=== PATIENT | male | born 1985 | race Caucasian/White ===

== ENCOUNTER 2017-05-19 18:23 | Emergency (ER) | payer MEDICARE, MEDICAID ==
[~2017-05-19 18:23] MED LIST: ACET-2043 PO; AMPH30TA9 PO; ARIP20TA11 PO; BACOUD TP; BENZ1 PO; BENZ200C38 PO; CLAR-13 PO; CLON-303 PO; DIV500ER PO; DOCU-416 PO; ESCI20TA8 PO; FEXO180T87 PO; GUAI600T34 PO; HYDR-317 PO; HYDR25CA13 PO; MULT1TAB77 PO; NAPR220C11 PO; OLAN15TA19; OMEP40CA48 PO; PHEN200T32 PO; PROP10TA58; PROP10TA58 PO; RANI-318; RISP1TAB79 PO; SERT-177 PO
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
[2017-05-19 18:28] VITALS: BP 133/81
[2017-05-19] MEDS ORDERED: ESCI10TA8 PO (18:47)
[2017-05-19] MEDS ORDERED: OLAN10VI2 PO (18:47)
[2017-05-19] MEDS ORDERED: HYDR25PO PO (18:47)
[2017-05-19] MEDS ORDERED: LAMO150T36 PO (18:47)
[2017-05-19] MEDS ORDERED: LIT300L PO (18:47)
[2017-05-19] MEDS ORDERED: LURA120T PO (18:47)
[2017-05-19 18:52] LABS: PLATELET COUNT, AUTOMATED 186 K/uL (150-450)
== END 2017-05-19 19:44 | disposition other institution (70) ==
LOC: ER 18:30
DX: F63.9 Impulse disorder, unspecified (principal); R62.50 Unspecified lack of expected normal physiological development in childhood; F17.200 Nicotine dependence, unspecified, uncomplicated
CPT/HCPCS: 36415; 80164; 80305; 81001; 83735; 84443; 85025; 99285; G0480; 80178; 80320; 80329; 82040; 82247; 82310; 82374; 82435; 82565; 82947; 84075; 84132; 84155; 84295; 84450; 84460; 84520

== ENCOUNTER 2017-05-19 19:27 | Inpatient (IN) | payer MEDICARE, MEDICAID ==
[~2017-05-19] VITALS: Ht 172.7 cm; Wt 72.6 kg
[~2017-05-19 19:27] MED LIST changes: +ESCI10TA8 PO; +HYDR25PO PO; +LAMO150T36 PO; +LIT300L PO; +LURA120T PO; +OLAN10VI2 PO
[2017-05-19] MEDS ORDERED: OLANZapine 5 MG TAB PO PRN (20:10)
[2017-05-19] MEDS ORDERED: LORazepam 1 MG TAB PO PRN (20:15)
[2017-05-19] MEDS ORDERED: diphenhydrAMINE 50 MG/ML VIAL IM PRN (20:15)
[2017-05-19] MEDS ORDERED: LORazepam 2 MG/ML VIAL IM PRN (20:15)
[2017-05-19] MEDS ORDERED: diphenhydrAMINE 25 MG CAP PO PRN (20:15)
[2017-05-19] MEDS ORDERED: WATER STERILE 10 ML VIAL IM ONLY PRN (20:15)
[2017-05-19] MEDS ORDERED: OLANZapine 10 MG VIAL IM ONLY PRN (20:15)
[2017-05-19 22:00] VITALS: BP 100/60
[2017-05-19] MEDS ORDERED: risperiDONE 1 MG TAB PO SCH (22:45)
[2017-05-19] MEDS ORDERED: PANTOPRAZOLE SOD 40 MG TABEC PO SCH (22:46)
[2017-05-19] MEDS ORDERED: ESCITALOPRAM OXALATE 10 MG TAB PO SCH (22:49)
[2017-05-19] MEDS ORDERED: LITHIUM CARBONATE 450 MG TABCR PO SCH (22:50)
[2017-05-19] MEDS ORDERED: DIVALPROEX SOD DR 500 MG TAB PO SCH (22:51)
[2017-05-20] MEDS: BENZTROPINE MESYLATE 0.5MG TAB PO SCH ×2 (01:17→08:37)
--- NOTE | 2017-05-20 06:35 | EKG ---
FACILITY: [facility] PATIENT NAME: SHERMAN OZUNA : [id number] MR: [id number] V: [id number] EXAM DATE: ORDERING PHYSICIAN: LAKSHMI REYES TECHNOLOGIST: Rashaad Sanford Reason : Blood Pressure : / mmHG Vent. Rate : 096 BPM Atrial Rate : 096 BPM P-R Int : 152 ms QRS Dur : 084 ms QT Int : 372 ms P-R-T Axes : 040 063 038 degrees QTc Int : 469 ms Normal sinus rhythm Normal ECG No previous ECGs available Confirmed by ALEXIS MORALES ([id number]) on 05/20/2017 1:13:10 PM Referred By: Confirmed By:ALEXIS MORALES
[2017-05-20] MEDS ORDERED: NICOTINE POLACRILEX 2 MG GUM PO PRN (07:40)
[2017-05-20] MEDS: METHYLPHENIDATE 18 MG TABER PO SCH (09:10)
[2017-05-20] MEDS: OLANZapine 5 MG TAB PO SCH ×2 (09:10→20:39)
[2017-05-20] MEDS ORDERED: hydrOXYzine PAMOATE 25 MG CAP PO PRN (10:15)
[2017-05-20] MEDS ORDERED: SALINE 0.65% NAS SPR 44 ML BTL PRN (10:15)
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
[2017-05-20] MEDS: MENTHOL/METHYL SALI CREAM 57 GM 57 GM TUBE TP PRN (19:19)
[2017-05-20 20:24] VITALS: BP 122/74
[2017-05-20] MEDS: FEXOFENADINE HCL 60 MG TAB PO SCH (20:37)
[2017-05-20] MEDS: LITHIUM CARBONATE 300 MG TABCR PO SCH (20:38)
[2017-05-20] MEDS: PANTOPRAZOLE SOD 40 MG TABEC PO SCH (20:38)
[2017-05-20] MEDS ORDERED: LURASIDONE 40 MG TAB PO SCH (21:00)
[2017-05-21 04:00] VITALS: BP 135/87
[2017-05-21] MEDS: METHYLPHENIDATE 18 MG TABER PO SCH (07:49)
[2017-05-21] MEDS: lamoTRIgine 100 MG TAB PO SCH (07:50)
[2017-05-21] MEDS: LITHIUM CARBONATE 300 MG TABCR PO SCH ×2 (07:50→20:58)
[2017-05-21] MEDS: OLANZapine 5 MG TAB PO SCH ×2 (07:50→20:57)
[2017-05-21] MEDS: BENZTROPINE MESYLATE 0.5MG TAB PO SCH (07:50)
[2017-05-21] MEDS: MENTHOL/METHYL SALI CREAM 57 GM 57 GM TUBE TP PRN (08:04)
--- NOTE | 2017-05-21 08:37 | BHS Progress Note ---
S - Subjective Progress Notes Subjective "I'm good." Client is pleasant, cooperative. Denies feelings of anger, self harm or thoughts of harming others. Reports sleeping well. Suicidal Ideation: None Homicidal Ideation: None S - Objective Physical Exam Vital Signs Vital Signs 05/21/17 04:00 Temp 98.7 Pulse 89 B/P (MAP) 135/87 (103) Pulse Ox 93 O2 Delivery Room Air Muscle Strength and Tone: WNL Gait and Station: Steady [facility] Medications Reviewed: Side Effects, Benefits of Medication, Risks Allergies Reviewed: Yes Mental Status Exam General Appearance: Casual, Good Eye Contact, Cooperative, Polite, Good Interaction, No Psychomotor Agitation, No Psychomotor Retardation Speech: Spontaneous, Normal Rate, Normal Rhythm, Normal Volume, Normal Tone, Other (slight impediment) Mood: Euthymic Affect: Calm, Neutral Thought Process: Organized, Logical, Goal Directed Thought Content: No Suicidal Ideation, No Homicidal Ideation, No Auditory Halllucinations, No Visual Hallucinations, No Thought Broadcasting, No Ideas of Reference, No Obsessions, No Compulsions Sensorium: Clear Cognition: Alert & Oriented-Person, Alert & Oriented-Place Memory: Immediate, Recent, Remote Intelligence: Below Average Insight Judgment: Poor [facility] Assessment and Plan [id number] Encounter Date: May 21, 2017 [id number] Encounter Time: 08:00 [facility] Plan: Admit to Unit, Necessary Precautions, Individual/Group Therapy, Admin /Titrate Meds, Educate Patient Tobacco Medications: Not Appropriate Condition Multpiple Antipsychotics Used: Yes Reason For >1 Antipsychotic: cross tapering currently onto zyprexa Problems: (1) Schizoaffective disorder, bipolar type Status: Chronic LAKSHMI REYES NP May 21, 2017 08:37
[2017-05-21] MEDS ORDERED: MOISTURIZING CREAM 120 GM JAR TP PRN (20:00)
[2017-05-21] MEDS ORDERED: LURASIDONE 40 MG TAB PO SCH (21:00)
[2017-05-22 05:51] VITALS: BP 121/58
[2017-05-22 06:00] LABS: PLATELET COUNT, AUTOMATED 175 K/uL (150-450)
[2017-05-22] MEDS: BENZTROPINE MESYLATE 0.5MG TAB PO SCH (08:08)
[2017-05-22] MEDS: METHYLPHENIDATE 18 MG TABER PO SCH (08:08)
[2017-05-22] MEDS: OLANZapine 5 MG TAB PO SCH ×2 (08:08→20:26)
[2017-05-22] MEDS: LITHIUM CARBONATE 300 MG TABCR PO SCH ×2 (08:08→20:26)
[2017-05-22] MEDS: lamoTRIgine 100 MG TAB PO SCH ×2 (09:00→09:49)
[2017-05-22] MEDS ORDERED: diphenhydrAMINE 25 MG CAP PO ONE (09:25)
--- NOTE | 2017-05-22 09:44 | B[facility] Progress Note ---
[facility] - Subjective Progress Notes Subjective "I'm good. I'm allergic to the soap." Denies SI, HI, anger. Pleasant and cooperative with all staff and peers. Reports sleep is good at night. Suicidal Ideation: None Homicidal Ideation: None [facility] - Objective Physical Exam Vital Signs Vital Signs 05/22/17 05:51 Temp 99.0 Pulse 84 B/P (MAP) 121/58 (79) Pulse Ox 94 O2 Delivery Room Air Muscle Strength and Tone: WNL Gait and Station: Steady [facility] Medications Reviewed: Side Effects, Benefits of Medication, Risks (Client complains of itcy areas of skin on szymanski, upper back. No redness, rash appreciated. No mouth sores, eye mucosa appears clear, no fever, CBC, chem comp , lithium level WNL) Allergies Reviewed: Yes Mental Status Exam General Appearance: Casual, Good Eye Contact, Cooperative, Polite, Good Interaction, No Psychomotor Agitation, No Psychomotor Retardation Speech: Spontaneous, Normal Rate, Normal Rhythm, Normal Volume, Normal Tone, Other (slight impediment) Mood: Euthymic Affect: Calm, Neutral Thought Process: Organized, Logical, Goal Directed Thought Content: No Suicidal Ideation, No Homicidal Ideation, No Auditory Halllucinations, No Visual Hallucinations, No Thought Broadcasting, No Ideas of Reference, No Obsessions, No Compulsions Sensorium: Clear Cognition: Alert & Oriented-Person, Alert & Oriented-Place Memory: Immediate, Recent, Remote Intelligence: Below Average Insight Judgment: Poor Result Diagram: 05/22/17 0535 05/22/17 0535 [facility] Assessment and Plan [id number] Encounter Date: May 22, 2017 [id number] Encounter Time: 09:00 [facility] Plan: Admit to Unit, Necessary Precautions, Individual/Group Therapy, Admin /Titrate Meds, Educate Patient Tobacco Medications: Not Appropriate Condition Multpiple Antipsychotics Used: Yes Reason For >1 Antipsychotic: cross tapering currently onto zyprexa Problems: (1) Schizoaffective disorder, bipolar type Status: Chronic (2) Moderate mental retardation (I.Q. 35-49) LAKSHMI REYES NP May 22, 2017 09:44
[2017-05-22 16:45] VITALS: BP 102/58
[2017-05-22] MEDS: MENTHOL/METHYL SALI CREAM 57 GM 57 GM TUBE TP PRN (17:14)
[2017-05-22] MEDS: FEXOFENADINE HCL 60 MG TAB PO SCH (20:29)
[2017-05-22] MEDS: PANTOPRAZOLE SOD 40 MG TABEC PO SCH (20:30)
[2017-05-23 04:07] VITALS: BP 124/72
[2017-05-23] MEDS: BENZTROPINE MESYLATE 0.5MG TAB PO SCH (08:33)
[2017-05-23] MEDS: LITHIUM CARBONATE 300 MG TABCR PO SCH (08:33)
[2017-05-23] MEDS: METHYLPHENIDATE 18 MG TABER PO SCH (08:33)
[2017-05-23] MEDS: lamoTRIgine 100 MG TAB PO SCH (08:33)
[2017-05-23] MEDS: OLANZapine 5 MG TAB PO SCH (08:33)
[2017-05-23] MEDS: MENTHOL/METHYL SALI CREAM 57 GM 57 GM TUBE TP PRN (08:38)
[2017-05-23] MEDS ORDERED: BEN5 PO (13:28)
[2017-05-23] MEDS ORDERED: METH18ERPT PO (13:30)
[2017-05-23] MEDS ORDERED: LAMO100T52 PO (13:32)
[2017-05-23] MEDS ORDERED: MENT113G6 TP (13:35)
[2017-05-23] MEDS ORDERED: MINE120C6 TP (13:37)
[2017-05-23] MEDS ORDERED: SODI75SP NS (13:39)
[2017-05-23] MEDS ORDERED: OLAN5TAB27 PO ×2 (13:43→13:44)
[2017-05-23] MEDS ORDERED: OLAN10TA21 PO (13:43)
[2017-05-23] MEDS ORDERED: HYDR25CA13 PO (13:50)
[2017-05-23] MEDS ORDERED: METHYLPHENIDATE 18 MG TABER PO SCH (14:15)
--- NOTE | 2017-05-24 21:02 | DISCHARGE SUMMARY ---
DATE OF ADMISSION: May 19, 2017 DATE OF DISCHARGE: May 23, 2017 The patient was seen regarding this discharge at approximately 1000 hours on the morning of 23 May 2017. FINAL DIAGNOSES 1. Moderate intellectual disability, likely attention deficit disorder and likely schizoaffective disorder type symptomatology associated with moderate intellectual disability. 2. The patient is suffering from impulse control disorder. 3. The patient is having supportive care through [facility] currently and supportive relationship with sister who is the patient's guardian. REASON FOR ADMISSION This is a pleasant 32-year-old male who was initially admitted from the [facility] where the patient was demonstrating increasing agitated, aggressive behaviors and reckless behaviors such as jumping out of cars. The patient was also verbalizing aggression toward others and the patient punching pena at times as well. The patient was notably admitted without incident through the Emergency Room. Close observation for impulsive or aggressive behaviors was in place. The patient was demonstrating no aggressive behaviors toward staff or other patients while on the Behavioral Health Unit, and the patient verbalizing no aggression. No parasuicidal behaviors were seen. The patient's medications were adjusted with assistance of current outpatient provider, Dr. Harris. The patient continued to do well on the unit, interacting well, and consistent with what would be expected with moderate intellectual disability. Patient meetings were held with [facility] staff. The patient was discharged back to the [facility]; however, the patient's guardian and sister is aware that the [facility] will expect this patient to exit their program within the next month. The patient was having no medical complaints on the unit outside of some mild attention- seeking behaviors. PHYSICAL EXAMINATION Please see emergency room note. GENERAL: This is a 32-year-old male suffering from moderate intellectual disability. VITAL SIGNS: At time of admission to the unit showed temperature 99.1, pulse 102, respiratory rate 18, blood pressure 133/81, and pulse oximetry 95% on room air. At time of discharge from [facility], vital signs showed temperature 98.3, pulse 100, respiratory rate 16, blood pressure 124/72, and pulse oximetry 97% on room air. LABORATORY DATA CBC upon admission was unremarkable, CMP unremarkable as well. Toxicology screen notable for lithium level of 0.6 upon admission. TSH was 1.84. Urinalysis unremarkable. Undetectable serum alcohol level. Depakote level was drawn as well and was undetectable upon admission. MENTAL STATUS EXAMINATION GENERAL APPEARANCE, BEHAVIOR, AND ATTITUDE: This is a 32-year-old male, very pleasant, smiling, joking with this provider, interacting in a manner consistent with moderate intellectual disability. The patient is making good eye contact. No bizarre mannerisms or tics outside of diagnosis. The patient is well groomed. SPEECH: Considered baseline. MOOD: Described as good. AFFECT: Full at times and mood congruent overall. THOUGHT PROCESSES: Appear goal directed. The patient is stating he would like to leave the hospital. No obvious loose associations or flight of ideas. THOUGHT CONTENT: No obvious auditory or visual hallucinations, ideas of reference, thought broadcasting, delusions, obsessions, or compulsions. The patient is adamantly denying suicidal or homicidal ideation and not displaying any behaviors associated with either. SENSORIUM: Appeared cleared. COGNITION: Alert and oriented to person and place, somewhat to time. MEMORY: Immediate, recent, and remote grossly intact, limited by cognition. INTELLIGENCE: Limited and below average, consistent with moderate intellectual disability. INSIGHT AND JUDGMENT: Remain limited due to intellectual capacity. RESULTS OF TESTING Imaging: None. Laboratory data: See above. CONSULTATIONS None. TREATMENT The patient received medications and participated in some individual and group therapy to the best of his ability. The patient was notably cooperative throughout stay. HOSPITAL COURSE Again, the patient remaining very cooperative throughout stay, exhibiting no aggression or parasuicidal behaviors. The patient was not verbalizing either as well. The patient is sleeping well on the unit, appetite good, and he remained cooperative throughout entire stay. CONDITION OF PATIENT ON DISCHARGE Stable, considered of minimal risk to himself or others and appropriate for ongoing outpatient management at [facility]. The patient's guardian and sister will continue to search for placement outside of [facility] facility if the patient were to depart from their services. DISPOSITION The patient was discharged to home in care of [facility] services and guardian. The patient would follow up with [facility] services. The patient was to stop all nicotine forms, including chew, cigarettes, or other forms of vapor cigarettes. The patient would receive a lithium level in approximately one month. Crisis line was given should symptoms return. Risks, benefits, and alternatives of above discharge plan were discussed. Informed consent was given to proceed with the above discharge plan by this patient, [facility] staff, and guardian present during discharge. DISCHARGE MEDICATIONS 1. Mindi 180 mg daily. 2. Cogentin 0.5 mg daily only. 3. Concerta 18 mg every morning. 4. Gem 600 mg twice daily. 5. Lamictal 200 mg every morning. No evidence of rash associated with Lamictal increase existed. The patient will continue to be monitored closely for such. 6. Protonix 40 mg daily. 7. The patient would use Bengay over the counter as needed. 8. Eucerin cream over the counter as needed. 9. The patient could remain on [place] [facility] [place] over the counter. 10. Vistaril 25 to 50 mg every six hours p.r.n. 11. The patient would remain on Zyprexa 10 mg every morning and Zyprexa 15 mg at night. 12. Lexapro was to be stopped. 13. Latuda was stopped as well. 14. The patient would not remain on any Depakote. MTDD
== END 2017-05-23 19:05 | disposition home or self-care (01) | DRG 884 ==
LOC: BHS 19:27
PROVIDERS: ADMIT Registered Nurse Psychiatric/Mental Health, Adult; ATTEND Registered Nurse Psychiatric/Mental Health, Adult
DX: F71 Moderate intellectual disabilities (principal); F25.0 Schizoaffective disorder, bipolar type; F98.8 Other specified behavioral and emotional disorders with onset usually occurring in childhood and adolescence; F63.89 Other impulse disorders; K21.9 Gastro-esophageal reflux disease without esophagitis; F17.210 Nicotine dependence, cigarettes, uncomplicated; Z62.810 Personal history of physical and sexual abuse in childhood; Z62.812 Personal history of neglect in childhood
CPT/HCPCS: 36415; 80178; 82040; 82247; 82310; 82374; 82435; 82565; 82947; 84075; 84132; 84155; 84295; 84450; 84460; 84520; 85025; 93005; A9270; Q0163

== ENCOUNTER → 2017-06-08 | Outpatient (CLI) | payer MEDICARE, MEDICAID ==
[~2017-06-08] MED LIST changes: +BEN5 PO; +LAMO100T52 PO; +MENT113G6 TP; +METH18ERPT PO; +MINE120C6 TP; +OLAN10TA21 PO; +OLAN5TAB27 PO; +SODI75SP NS
--- NOTE | 2017-06-08 12:35 | RADIOLOGY IMAGING REPORT ---
FACILITY: [facility] PATIENT NAME: Lazaro Alcantar : 1985 MR: [id number]: [id number] EXAM DATE: ORDERING PHYSICIAN: CAROLYN ALVAREZ TECHNOLOGIST: Location: [facility] Patient: Lazaro Alcantar : 1985 Visit/Account:[id number] Date of Sevice: 06/08/2017 LUMBAR SPINE 2 OR 3 VIEW Indication: Back pain., Comparison: None available FINDINGS: There are 5 lumbar type vertebral bodies. There is no acute osseous or acute alignment abnormality. No evidence of spondylolisthesis or spondylolysis. The vertebral body heights appear well-maintained. IMPRESSION: 1. No acute osseous or acute alignment abnormality of the lumbar spine. Report Dictated By: Anshu Reyes at 06/08/2017 12:27 PM Report E-Signed By: Anshu Reyes at 06/08/2017 12:30 PM WSN:[id number]
== END ==
LOC: RAD 10:55
PROVIDERS: ATTEND Family Medicine
DX: M54.5 Low back pain (principal)
CPT/HCPCS: 72100